=== PATIENT | male | born 1960 | race Caucasian/White ===

== ENCOUNTER 2023-12-13 10:56 | Emergency (ER) | payer OTHER, SELFPAY ==
--- NOTE | 2023-12-13 11:13 | ED.GENMED ---
History of Present Illness
General
Chief Complaint: CODE
Source: family and ambulance crew
Exam Limitations: other (Cardiac arrest)
Time Seen by Provider: 12/13/23 11:09
Nursing documentation reviewed up to this point in time: agreed with
History of Present Illness
History of Present Illness:
63 yo male presents to the emergency department via EMS due to cardiac arrest. Went outside to [employer], and was found down by his family. They called 911 and were advised to start CPR. EMS arrived, intubated and placed IO in left tibia. They
found him in ventricular fibrillation, and shocked him, gave epinephrine 6 times and amiodarone. He arrives to the emergency department with CPR in progress.
Past History
Past History
ED Past Medical History: Other (Sleep apnea)
ED Past Surgical History: None
Social History
Tobacco: Non-smoker
Alcohol: None
Drug: None
Personal:
Living: with family
Employment: Employed
Review of Systems
Review of Systems
Unable to obtain full review of systems at this time due to: other (Cardiac arrest)
All Other Systems: Not applicable
Phy Exam
Physical Exam
Physical Exam:
CODE EXAM:
VITAL SIGNS: No palpable blood pressure, no pulses, no respiration.
GENERAL EXAM: Mottled
EYES: Pupils fixed
ENT: Patient intubated
NECK: No venous distention
RESPIRATORY: Equal breath sounds
CARDIAC: Absent heart sounds
VASCULAR: Absent pulses
ABDOMEN: Soft no masses
GUAIAC: Not done
MUSCULOSKELETAL: Unable to evaluate strength
EXTREMITIES: No edema or contractures, IO right proximal tibia
SKIN: No rash
PSYCH: Mood, affect unable to evaluate
adequate cpr in progress-generating palpable femoral pulses
MDM/Problems Addressed
Differential Diagnosis Includes:
Cardiac arrest
MDM/Problems Addressed:
63-year-old male with cardiac arrest, despite extensive ACLS efforts, unable to be revived. Discussed with electrophonic engineer, will get autopsy, consent family..
*Pulse Oximetry
Patient hypoxic: yes
*EKG
Interpreted by ED Provider?: NA
*Division Operations Specialist Interpretation
Rate: other (asystole)
Interpretation: abnormal (asystole)
Heart Rate: 0
*Critical Care Note
Total Time (30-74mins, 75-104mins- exclusive of procedures): Not Applicable
ED Attending Note
-
Portions of this chart may have been created with voice recognition software.� Occasional wrong word or��sound alike� substitutions may have occurred due to the inherent limitations of voice recognition software.
Discharge Plan
Departure
Patient Disposition:
Date of Disposition: 12/13/23
Time of Disposition: 11:02
Patient with high blood pressure during this ER visit?: No
Discharge Problem:
Cardiac arrest
Referrals:
NONE,* [Family Provider] -
Interventions
Interventions:
*Nursing Disposition Last Done: 12/13/23 15:10
Discharge Date and Time
Discharge Date/Time: 12/13/23 15:16
Print Language: SPANISH
--- NOTE | 2023-12-13 15:39 | CHAP ---
Paged by nurse for Adrian's family after he . , Kirstie, was deeply grieved and shocked; she said Adrian was a very denominational man. Other family members were also present and grieving. Emotional and spiritual support provided; prayers offered
from the [employer]. Prayer shawl given to Kirstie, to offer comfort. Family had asked about removing tubes. Explanation given, indicating that autopsy would be performed.
== END 2023-12-13 15:16 | disposition expired ==
LOC: EMR 10:56
PROVIDERS: EMERGENCY PHYSICIAN Emergency Medicine
DX: I46.9 Cardiac arrest, cause unspecified (principal)
CPT/HCPCS: 99284; 92950